=== PATIENT | male | born 1935 | race Caucasian/White ===

== ENCOUNTER 2022-06-27 15:53 | Inpatient (IN) | payer BC, MEDICARE ==
[2022-06-27] MEDS ORDERED: HYDROmorphone 1 MG/ML 1 ML SYRINGE IVP STA (16:19)
--- NOTE | 2022-06-27 16:21 | ED ---
Fall HPI - General Stated Complaint: Fall, hip pain Time Seen by Provider: 06/27/22 16:00 Source: patient, EMS, RN notes reviewed - History of Present Illness Initial Comments: 87-year-old male who states he slipped and fell when he was loading things into his car at a local supermarket. The pavement had been very wet after a brief range. He fell onto his right side he complains of pain and inability to bear weight on the area. He has no other complaints of any other pain or injury. Patient initially refused pain medication but he is requesting something this time. Complaint: fall - Related Data Allergies Allergy/AdvReac Type Severity Reaction Status Date / Time [id number] Reductase AdvReac Itching Verified 06/27/22 16:26 Inhibitor Review of Systems ROS Statement: Those systems with pertinent positive or pertinent negative responses have been documented in the HPI. ROS Other: All systems not noted in ROS Statement are negative. General Exam - General Exam Comments Initial Comments: This is a well-developed well-nourished awake alert oriented 3 male General appearance: alert, in no apparent distress Head exam: Present: atraumatic, normocephalic, normal inspection Eye exam: Present: normal appearance, PERRL, EOMI. Absent: scleral icterus, conjunctival injection, periorbital swelling ENT exam: Present: normal exam, mucous membranes moist Neck exam: Present: normal inspection, full ROM. Absent: tenderness, meningismus, lymphadenopathy Respiratory exam: Present: normal lung sounds bilaterally. Absent: respiratory distress, wheezes, rales, rhonchi, stridor Cardiovascular Exam: Present: regular rate, normal rhythm, normal heart sounds. Absent: systolic murmur, diastolic murmur, rubs, gallop, clicks GI/Abdominal exam: Present: soft, normal bowel sounds. Absent: distended, te nderness, guarding, rebound, rigid Extremities exam: Present: tenderness (Tennis palpation of the right hip noted definitive deformity there is slight lateral rotation.), normal capillary refill. Absent: full ROM, pedal edema, joint swelling, calf tenderness Back exam: Present: normal inspection, full ROM. Absent: tenderness Neurological exam: Present: alert, oriented X3, CN II-XII intact Psychiatric exam: Present: normal affect, normal mood Skin exam: Present: warm, dry, intact, normal color. Absent: rash Course Vital Signs 06/27/22 16:20 Temperature 98.7 F Pulse Rate 74 Respiratory 16 Rate Blood Pressure 157/78 O2 Sat by Pulse 95 Oximetry Medical Decision Making - Medical Decision Making I did discuss findings with patient family as well as with Dr. Grimes patient will be admitted with medical clearance for repair of the hip fracture. - Radiology Data Radiology results: image reviewed Interpreted by me: Imaging reviewed evidence of an intertrochanteric fracture of the right hip with a lesser trochanter avulsion. Patient complete report Disposition Clinical Impression: Fracture of hip, Fall Disposition: ADMITTED IP TO THIS [facility] Condition: Stable Referrals: Ricci Baxter DO [Primary Care Provider] - 1-2 days Decision Date: 06/27/22 Decision Time: 17:36
--- NOTE | 2022-06-27 17:15 | XR ---
EXAMINATION TYPE: XR Hip RT and AP Pelvis DATE OF EXAM: 06/27/2022 COMPARISON: NONE HISTORY: Fall. Hip pain TECHNIQUE: 3 views FINDINGS: The pelvic ring is intact. There is an acute comminuted intertrochanteric fracture right fe mur. No significant displacement. No dislocation. Sacroiliac joints are intact. IMPRESSION: Acute intertrochanteric fracture right femur.
[2022-06-27] MEDS ORDERED: NALOXONE 0.4 MG/ML 1 ML VIAL IV PRN (17:36)
[2022-06-27 17:43] LABS: Basophils % (A) 0 %; Eosinophils # (A) 0.1 k/uL (0-0.7); Eosinophils % (A) 1 %; HCT 44.2 % (39.0-53.0); HGB 14.7 gm/dL (13.0-17.5); Lymphocytes # (A) 0.8 k/uL (1.0-4.8); Lymphocytes % (A) 10 %; MCH 34.1 pg (25.0-35.0); MCHC 33.2 g/dL (31.0-37.0); MCV 102.8 fL (80.0-100.0); Macrocytosis Slight; Monocytes # (A) 0.4 k/uL (0-1.0); Monocytes % (A) 5 %; Neutrophils # (A) 6.7 k/uL (1.3-7.7); Neutrophils % (A) 83 %; Platelet Count 169 k/uL (150-450); RDW 13.7 % (11.5-15.5)
[2022-06-27 17:45] LABS: Appearance,Urine Clear (Clear); Bilirubin,Urine Negative (Negative); Blood,Urine Negative (Negative); Color,Urine Yellow; Glucose,Urine (UA) 4+ (Negative); Ketones,Urine Negative (Negative); Leukocyte Esterase,Urine Negative (Negative); Nitrite,Urine Negative (Negative); Protein,Urine Negative (Negative); Specific Gravity,Urine 1.033 (1.001-1.035); Urobilinogen,Urine <2.0 mg/dL (<2.0)
[2022-06-27 17:56] LABS: ALT 23 U/L (4-49); AST 27 U/L (17-59); African American GFR (CKD) >90 (>60 ml/min/1.73 sqM); Alkaline Phosphatase 79 U/L (38-126); Anion Gap 4 mmol/L; Blood Urea Nitrogen 15 mg/dL (9-20); Calcium 9.1 mg/dL (8.4-10.2); Carbon Dioxide 29 mmol/L (22-30); Chloride 103 mmol/L (98-107); Glucose 203 mg/dL (74-99); Magnesium 2.1 mg/dL (1.6-2.3); Non-African American GFR(CKD) 78 (>60 ml/min/1.73 sqM); Potassium 4.5 mmol/L (3.5-5.1); Sodium 136 mmol/L (137-145); Total Bilirubin 0.6 mg/dL (0.2-1.3); Total Protein 6.9 g/dL (6.3-8.2)
--- NOTE | 2022-06-27 18:18 | XR ---
EXAMINATION TYPE: XR chest 2V DATE OF EXAM: 06/27/2022 COMPARISON: NONE HISTORY: Pain. Trauma TECHNIQUE: 2 views FINDINGS: There is no heart failure nor confluent pneumonic infiltrate. Costophrenic angles are clear . There are sternal wires. No pneumothorax. There is some osteopenia. No significant thoracic laura destiny deformity. IMPRESSION: No active cardiopulmonary disease. No acute fracture seen.
--- NOTE | 2022-06-27 18:19 | XR ---
EXAMINATION TYPE: XR femur RT DATE OF EXAM: 06/27/2022 COMPARISON: NONE HISTORY: Pain TECHNIQUE: 4 views FINDINGS: There is acute comminuted intertrochanteric fracture right femur. No significant displaceme nt of the major fragments. The knee joint is anatomic. No dislocation at the hip joint. IMPRESSION: Intertrochanteric fracture right femur. Large lesser trochanteric displaced fracture frag ment.
[2022-06-27] MEDS: HYDROmorphone 1 MG/ML 1 ML SYRINGE IVP PRN (18:46)
[2022-06-27] MEDS: SODIUM CHLORIDE 0.9% 1,000 ML IV SCH (21:36)
[2022-06-28] MEDS: HYDROmorphone 1 MG/ML 1 ML SYRINGE IVP PRN ×3 (00:05→09:46)
[2022-06-28] MEDS: SODIUM CHLORIDE 0.9% 1,000 ML IV SCH ×2 (03:54→09:48)
[2022-06-28 07:44] LABS: Glucose,Whole Blood 164 mg/dL (70-110)
--- NOTE | 2022-06-28 10:17 | P.HPOR ---
History of Present Illness H&P Date: 06/28/22 This patient is an 87-year-old male with past medical history of diabetes that presented to [facility] emergency department yesterday via ambulance after a fall in a parking lot. The patient states it has just started raining and the pavement was slippery, and he lost his footing and fell to her directly onto the right hip. He was unable to get up or weight-bear following the injury. EMS was called and patient was transported to the emergency department. X-rays in the emergency department revealed a right intertrochanteric hip fracture. The patient was admitted under the care of Dr. Grimes with a consult placed to internal medicine for preoperative medical clearance. Patient examined bedside this morning. He is complaining of isolated right hip pain. He denies additional injuries or complaints. He states he did not hit his head. He states he does not take any blood thinners besides a baby aspirin daily. He denies chest pain, shortness breath, nausea, vomiting. Vital signs stable. Past Medical History Past Medical History: Diabetes Mellitus Additional Past Medical History / Comment(s): Spinal stenosis History of Any Multi-Drug Resistant Organisms: None Reported Past Surgical History: Coronary Bypass/CABG Additional Past Surgical History / Comment(s): TURP, Past Anesthesia/Blood Transfusion Reactions: No Reported Reaction Past Psychological History: No Psychological Hx Reported Smoking Status: Never smoker Past Alcohol Use History: None Reported Past Drug Use History: None Reported Medications and Allergies Home Medications Medication Instructions Recorded Confirmed Type Ascorbic Acid [Vitamin C] 1,000 mg PO DAILY 06/27/22 06/27/22 History Aspirin EC [Ecotrin Low Dose] 81 mg PO HS 06/27/22 06/27/22 History Cholecalciferol (Vitamin D3) 125 mcg PO DAILY 06/27/22 06/27/22 History [Vitamin D3 (125 MCG = 5,000 IU)] Cyanocobalamin (Vitamin B-12) 2,500 mcg PO DAILY 06/27/22 06/27/22 History [Vitamin B-12] Empagliflozin [Jardiance] 25 mg PO DAILY 06/27/22 06/27/22 History Exenatide Microspheres [Bydureon 2 mg SQ 06/27/22 06/28/22 History Bcise Auto-Injector] Insulin Glargine,Hum.rec.anlog 31 units SQ 06/27/22 06/28/22 History [Steven Bansal] [place]-3 Fatty Acids [[place]-3] 1,000 mg PO DAILY 06/27/22 06/27/22 History Ubidecarenone [Coenzyme Q10] 200 mg PO DAILY 06/27/22 06/27/22 History Vitamin B Complex 1 cap PO DAILY 06/27/22 06/27/22 History Zinc 25 mg PO DAILY 06/27/22 06/27/22 History ramipriL [Altace] 5 mg PO HS 06/27/22 06/28/22 History carvediloL [Coreg] 1.625 mg PO BID 06/28/22 06/28/22 History Allergies Allergy/AdvReac Type Severity Reaction Status Date / Time [id number] Reductase AdvReac Itching Verified 06/27/22 18:07 Inhibitor Physical Examination On examination, the patient is sitting up in bed in no apparent distress. He is alert and oriented 3. His head appears normocephalic and atraumatic. His breathing appears unlabored. on inspection of his bilateral upper extremities, there are no obvious deformities or signs of trauma. There is a very small abrasion at the posterior right elbow, no pain with passive range of motion or palpation of the elbow. On inspection of his left lower extremity, there are no obvious deformities or signs of trauma. On inspection of his right lower extremity, there are no open wounds or lacerations. There is diffuse pain to palpation of the right hip. There is severe pain of the knee with passive range of motion of the right hip. No pain with palpation of the right knee, lower leg, ankle, foot. Motor and sensory function is intact of the right lower extremity. The right dorsalis pedis pulses easily palpable, the right lower extremity with a is warm and well perfused. Calf is nontender. Results Right hip and pelvis x-ray 06/27/22: Right displaced intertrochanteric hip fracture - Labs Labs: Abnormal Lab Results - Last 24 Hours (Table) 06/27/22 06/27/22 06/27/22 Range/Units 17:23 17:23 17:23 MCV 102.8 H (80.0-100.0) fL Lymphocytes # 0.8 L (1.0-4.8) k/uL Sodium 136 L (137-145) mmol/L Glucose 203 H (74-99) mg/dL POC Glucose (mg/dL) (70-110) mg/dL Urine Glucose (UA) 4+ H (Negative) 06/28/22 Range/Units 07:43 MCV (80.0-100.0) fL Lymphocytes # (1.0-4.8) k/uL Sodium (137-145) mmol/L Glucose (74-99) mg/dL POC Glucose (mg/dL) 164 H (70-110) mg/dL Urine Glucose (UA) (Negative) H & H 06/27/22 Range/Units 17:23 Hgb 14.7 (13.0-17.5) gm/dL Hct 44.2 (39.0-53.0) % Result Diagrams: 06/27/22 17:23 06/27/22 17:23 Assessment and Plan Assessment: Displaced right intertrochanteric hip fracture Plan: - The clinical and imaging findings were discussed with the patient. The patient was discussed in detail with Dr. Grimes. Recommend closed reduction and insertion of right short gamma nail today, pending medical clearance and consent. The patient gave verbal consent to go forward with surgery at bedside this point. - Strict nonweightbearing right lower extremity. Bed rest. - Internal medicine consulted for pre-operative medical clearance. - NPO diet. Will plan for OR this afternoon.
[2022-06-28 11:54] LABS: Glucose,Whole Blood 105 mg/dL (70-110)
[2022-06-28] MEDS ORDERED: DEXTROSE 50% SYRINGE 50 ML IVP PRN ×2 (13:30)
--- NOTE | 2022-06-28 13:32 | P.CONS ---
History of Present Illness - Reason for Consult Consult date: 06/28/22 - History of Present Illness This is an 87-year-old male presents to the hospital after a fall while loading his car after shopping. States the [place] closing threw him off balance and he slipped, pavement was wet and patient reports slipping and landed on his right hip. Denies hitting his head. Right hip and pelvis x-ray shows acute intertrochanteric fracture right femur. Patient admitted to the hospital pending orthopedic evaluation. Medicine has been counseled to for surgical clearance. Chest x-ray on admission shows no active cardiopulmonary disease. No rib fractures evident. EKG reviewed shows sinus rhythm with first-degree AV block heart rate is 60, QTc interval 419. There are no ST or T-wave changes clint guo. He follows with Dr. Judy Baxter to the primary care setting, and also follows with a primary doctor in [place]. He lives in [place]. Patient's medical history significant for diabetes mellitus, hypertenion, hyperlipidemia, states his heart skips a beat, spinal stenosis, coronary artery bypass grafting x 5 about 15 to 20 years ago, kidney stones, enlarged prostate post TURP, also history of hernia repair. He also has obstructive sleep apnea, wears CPAP at night, which his family is brining. He is a never smoker. Drinks a beer every other day. On admission his blood count panel is essentially unremarkable he is macrocytic with an MCV of 102.8, sodium 136, glucose is 203 with repeat of 164. Troponin negative, liver enzymes are negative. Creatinine stable 0.89, urinalysis is showing glucose, negative for infection. He is afebrile, heart rate 76, blood pressure 150/75, 98% room air. Patient has been hydrated with 0.9 normal saline at 130 mL per hour which we will stop. REVIEW OF SYSTEMS: CONSTITUTIONAL: No fever, no malaise, no fatigue. HEENT: No recent visual problems or hearing problems. Denied any sore throat. CARDIOVASCULAR: No chest pain, orthopnea, PND, no palpitations, no syncope. PULMONARY: No shortness of breath, no cough, no hemoptysis. GASTROINTESTINAL: No diarrhea, no nausea, no vomiting, no abdominal pain. NEUROLOGICAL: No headaches, no weakness, no numbness. HEMATOLOGICAL: Denies any bleeding or petechiae. GENITOURINARY: Denies any burning micturition, frequency, or urgency. MUSCULOSKELETAL/RHEUMATOLOGICAL: Reports right hip pain, no parasthesias. ENDOCRINE: Denies any polyuria or polydipsia. The rest of the 14-point review of systems is negative. PHYSICAL EXAMINATION: GENERAL: The patient is alert and oriented x3, not in any acute distress. Well developed, well nourished. HEENT: Pupils are round and equally reacting to light. EOMI. No scleral icterus. No conjunctival pallor. Normocephalic, atraumatic. No pharyngeal erythema. No thyromegaly. CARDIOVASCULAR: S1 and S2 present. No murmurs, rubs, or gallops. PULMONARY: Chest is clear to auscultation, no wheezing or crackles. ABDOMEN: Soft, nontender, nondistended, normoactive bowel sounds. No palpable organomegaly. MUSCULOSKELETAL: No joint swelling or deformity. EXTREMITIES: No cyanosis, clubbing, or pedal edema. NEUROLOGICAL: Gross neurological examination did not reveal any focal deficits. SKIN: No rashes. Assessment and plan Assessment Acute right intertrochanteric fracture femur status post fall Hypertension resumed on home medications History of coronary artery disease test post CABG Diabetes mellitus with hyperglycemia Hyperlipidemia Obstructive sleep apnea wears CPAP History spinal stenosis History enlarged prostaete post TURP GI Prophylaxis DVT prophylaxis as per primary Full code Plan Resume appropriate home medications Cut dose of lisinopril in half to avoid postoperative hypotension Hold home baby aspirin EKG reviewed Labs reviewed Patient is cleared medically for surgery is considered a low operative risk Discontinue IV fluids Thank you for this consultation The impression and plan of care has been dictated by Onelia Miller Nurse Practitioner as directed. Dr. Mk MD I have performed a history and physical examination and medical decision making of this patient, discussed the same with the dictator, and agree with the dictators assessment and plan as written, documented as a scribe. Based on total visit time, I have performed more than 50% of this visit. Past Medical History Past Medical History: Diabetes Mellitus Additional Past Medical History / Comment(s): Spinal stenosis History of Any Multi-Drug Resistant Organisms: None Reported Past Surgical History: Coronary Bypass/CABG Additional Past Surgical History / Comment(s): TURP, Past Anesthesia/Blood Transfusion Reactions: No Reported Reaction Past Psychological History: No Psychological Hx Reported Smoking Status: Never smoker Past Alcohol Use History: None Reported Past Drug Use History: None Reported Medications and Allergies Home Medications Medication Instructions Recorded Confirmed Type Ascorbic Acid [Vitamin C] 1,000 mg PO DAILY 06/27/22 06/27/22 History Aspirin EC [Ecotrin Low Dose] 81 mg PO HS 06/27/22 06/27/22 History Cholecalciferol (Vitamin D3) 125 mcg PO DAILY 06/27/22 06/27/22 History [Vitamin D3 (125 MCG = 5,000 IU)] Cyanocobalamin (Vitamin B-12) 2,500 mcg PO DAILY 06/27/22 06/27/22 History [Vitamin B-12] Empagliflozin [Jardiance] 25 mg PO DAILY 06/27/22 06/27/22 History Exenatide Microspheres [Bydureon 2 mg SQ FR 06/27/22 06/28/22 History Bcise Auto-Injector] Insulin Glargine,Hum.rec.anlog 31 units SQ HS 06/27/22 06/28/22 History [Steven Bansal] [place]-3 Fatty Acids [[place]-3] 1,000 mg PO DAILY 06/27/22 06/27/22 History Ubidecarenone [Coenzyme Q10] 200 mg PO DAILY 06/27/22 06/27/22 History Vitamin B Complex 1 cap PO DAILY 06/27/22 06/27/22 History Zinc 25 mg PO DAILY 06/27/22 06/27/22 History ramipriL [Altace] 5 mg PO HS 06/27/22 06/28/22 History carvediloL [Coreg] 1.625 mg PO BID 06/28/22 06/28/22 History Allergies Allergy/AdvReac Type Severity Reaction Status Date / Time [id number] Reductase AdvReac Itching Verified 06/27/22 18:07 Inhibitor Physical Exam Vitals: Vital Signs Temp Pulse Pulse Resp BP BP Pulse Ox 06/28/22 04:53 97.9 F 76 16 158/75 99 06/27/22 22:00 16 06/27/22 21:17 98.1 F 76 16 163/70 97 06/27/22 20:45 80 16 139/74 95 06/27/22 16:20 98.7 F 74 16 157/78 95 Intake and Output 06/27/22 06/28/22 06/28/22 22:59 06:59 14:59 Intake Total 1400 Output Total 325 Balance 1075 Intake: Intake, IV Titration 1400 Amount Sodium Chloride 0.9% 1, 1400 000 ml @ 130 mls/hr IV . [id number] [facility] Rx#:[id number] Output: Urine 325 Other: Voiding Method Urinal Urinal # Voids 2 Weight 76.204 kg Results CBC & Chem 7: 06/27/22 17:23 06/27/22 17:23 Labs: Abnormal Lab Results - Last 24 Hours (Table) 06/27/22 06/27/22 06/27/22 Range/Units 17:23 17:23 17:23 MCV 102.8 H (80.0-100.0) fL Lymphocytes # 0.8 L (1.0-4.8) k/uL Sodium 136 L (137-145) mmol/L Glucose 203 H (74-99) mg/dL POC Glucose (mg/dL) (70-110) mg/dL Urine Glucose (UA) 4+ H (Negative) 06/28/22 Range/Units 07:43 MCV (80.0-100.0) fL Lymphocytes # (1.0-4.8) k/uL Sodium (137-145) mmol/L Glucose (74-99) mg/dL POC Glucose (mg/dL) 164 H (70-110) mg/dL Urine Glucose (UA) (Negative) Assessment and Plan Time with Patient: Less than 30
[2022-06-28] MEDS: carvediloL 3.125 MG TAB PO SCH ×2 (13:47→17:12)
[2022-06-28] MEDS ORDERED: TRANEXAMIC ACID 1,000 MG in SODIUM CHLORIDE 0.9% 100 ML IVPB ONE ×2 (15:02→15:03)
[2022-06-28 15:56] LABS: Glucose,Whole Blood 76 mg/dL (70-110)
[2022-06-28] MEDS ORDERED: DEXTROSE 50% SYRINGE 50 ML IVP ONE (16:00)
[2022-06-28] MEDS ORDERED: LACTATED RINGERS 1,000 ML IV ONE (16:03)
[2022-06-28] MEDS ORDERED: ONDANSETRON 4 MG/2 ML VIAL IVP ONE (16:03)
[2022-06-28 16:24] LABS: Glucose,Whole Blood 115 mg/dL (70-110)
[2022-06-28] MEDS ORDERED: LIDOCAINE 2% INJ 20 MG/ML (2 ML VIAL) ONE (16:40)
[2022-06-28] MEDS ORDERED: PROPOFOL 10 MG/ML 20 ML VIAL IV ONE (16:40)
[2022-06-28] MEDS ORDERED: PHENYLEPHRINE-0.9% NACL SYG 1,000 MCG/10 ML SYRINGE ONE (16:40)
[2022-06-28] MEDS ORDERED: fentaNYL (PF) 50 MCG/ML 2 ML AMP ONE (16:40)
[2022-06-28] MEDS ORDERED: MIDAZOLAM 2 MG/2 ML VIAL ONE (16:40)
[2022-06-28] MEDS ORDERED: TRANEXAMIC ACID IN NACL,ISO-OS 1,000 MG/100 ML BAG ONE (16:40)
[2022-06-28] MEDS ORDERED: ePHEDrine 50 MG/ML 1 ML VIAL ONE (16:40)
[2022-06-28] MEDS ORDERED: SUCCINYLCHOLINE CHLORIDE 200 MG/10 ML VIAL IV ONE (16:40)
[2022-06-28] MEDS ORDERED: carvediloL 3.125 MG TAB PO SCH (17:30)
[2022-06-28] MEDS: INSULIN ASPART (NovoLOG) 100 UNIT/ML VIAL SQ SCH ×2 (17:57→21:18)
[2022-06-28] MEDS ORDERED: hydrOXYzine pamoate 25 MG CAP PO PRN (18:36)
[2022-06-28] MEDS ORDERED: HYDROmorphone 0.5 MG/0.5 ML SYRINGE IVP PRN ×3 (18:36)
[2022-06-28] MEDS ORDERED: HYDROcodone/APAP 5-325MG 1 EACH TAB PO PRN (18:36)
[2022-06-28] MEDS ORDERED: ONDANSETRON 4 MG/2 ML VIAL IVP PRN (18:36)
--- NOTE | 2022-06-28 18:36 | P.OP ---
Date of Procedure: 06/28/22 Preoperative Diagnosis: 1. Right intertrochanteric hip fracture 2. Coronary artery disease status post open heart surgery 3. Type 2 diabetes Postoperative Diagnosis: Same Procedure(s) Performed: Operative fixation of right intertrochanteric hip fracture with short intramedullary hip screw Implants: Gamma nail 180 x 11 mm, 105 mm lag screw, 37.5 mm is to interlocking screw Anesthesia: DAI Surgeon: Stuart Grimes Nurse Sexual Assault #1: Alycia Mora Estimated Blood Loss (ml): 200 IV fluids (ml): 1,000 Pathology: none sent Condition: stable Disposition: PACU Indications for Procedure: I met with the patient and their family preoperatively to discuss their injury and treatment options. They have an extra-capsular, intertrochanteric hip fracture and my recommendation was to stabilize the fracture with an intramedullary hip screw to facilitate early mobilization. We discussed the potential risks and complications of this surgical procedure including but certainly not limited to risks from anesthesia, superficial infection, deep infection, fracture nonunion, fracture malunion, hardware failure including broken hardware, varus collapse with lag screw cut out of the femoral head, progression of hip arthritis, limb length discrepancy, symptomatic hardware, need for further surgery including hardware removal and conversion to arthroplasty, DVT, PE, acute coronary event, pressure ulcers, urinary tract infection, failure to thrive, an inability to regain preinjury level of function, and possibly . The patient and their family understand these potential complications and also awknowledge that other less common complications are possible. They provided both their verbal and written consent to go forward with operative fixation of their hip fracture with an intramedullary hip screw. Description of Procedure: The patient was identified in preoperative holding and the correct operative extremity was marked with my initials. I reviewed the consent form with the patient and their family and all of their questions were answered. The patient was then brought back to the operating room by anesthesia. Anesthesia, preoperative antibiotics, and tranexamic acid were given by the anesthesia team while on the [place]. Both ankles were padded with webril and boots for the [place] table were applied. The patient was then carefully transferred onto the [place] table. A perineal post was immediately placed. The contralateral arm was secured on a well-padded arm glez. The ipsilateral arm was draped across the chest and secured with a pillow, foam, and paper tape to allow access to the proximal femur. Nonsterile drapes were applied to the operative extremity. The height of the table was elevated and the contralateral extremity was dropped towards the floor to facilitate imaging. A timeout was performed identifying the correct patient, operative extremity, and procedure. Fluoroscopy was brought in to assess the fracture. A provisional reduction was performed using longitudinal traction, adduction, and internal rotation. An AP and lateral view were obtained to assess the reduction. The operative extremity was then prepped and draped in the standard sterile fashion. A straight incision was made at the tip of the greater trochanter and extended proximally for 3 cm. Skin and subcutaneous tissues were incised sharply. The underlying fascia was incised in line with the skin incision. An awl was placed just medial to the tip of the greater trochanter on the AP view and colinear with the canal on the lateral view. A 3.2 mm guide pin was then advanced into the proximal femur. The position of the guidepin was verified with fluoroscopy. An opening reamer and soft tissue cannula were placed over the guidepin and used to open the proximal femur to the level of the lesser trochanter. The 3.2 mm guide pin and opening reamer were removed. A short gamma nail was dispensed, hooked up to the targeting arm and I verified that the trochar through the targeting arm lined up with the slots on the nail. The nail was then impacted into the proximal femur until the appropriate depth had been reached. A small stab incision was made over the lateral aspect of the femur using the targeting arm as a reference for the lag screw. Incision was carried down to the skin and fascia down to the lateral cortex of the femur. The trocar was then placed up to the lateral cortex of the femur and a guidepin was placed in the low center position on the AP view and centered in the femoral head on the lateral view. Once the position of the guidewire was verified, we reamed to appropriate depth and placed a lag screw over the guidewire and into the femoral head. The position of the lag screw was assessed with fluoroscopy. The guidewi re was then removed from the femoral head. The set screw was placed proximally, brought fully down and then released a quarter turn to allow compression. A final stab incision was made over the lateral femur at the site of the distal interlocking screw, again using the targeting arm as a reference. The trocar and sleeve were placed to the lateral cortex of the femur. We then drilled and placed a distal interlocking screw. Final fluoroscopic images were taken showing excellent reduction of the fracture and appropriate position of the implants. All wounds were thoroughly irrigated and closed in layers. Sterile dressings were applied. The drapes were taken down, the patient was transferred off the [place] table, and was brought to recovery having tolerated the procedure well. Alycia Mora PA-C was required as a skilled assistant art director for patient positioning, retraction, placement of implants, closure of wounds, and application of dressings. PLAN: The patient can weight-bear as tolerated on their operative extremity. 2 doses of postoperative antibiotics. DVT prophylaxis with aspirin 81 mg twice a day starting the day of surgery. Dressing change on postoperative day #2. Appreciate Internal Medical assistance with perioperative medical management. Discharge planning in process.
[2022-06-28 18:43] LABS: Glucose,Whole Blood 114 mg/dL (70-110)
[2022-06-28] MEDS ORDERED: HYDROmorphone 0.5 MG/0.5 ML SYRINGE IVP ONE (18:46)
[2022-06-28] MEDS: ONDANSETRON 4 MG/2 ML VIAL IVP PRN (19:04)
[2022-06-28 20:17] LABS: Basophils % (A) 0 %; Eosinophils % (A) 0 %; HCT 35.4 % (39.0-53.0); HGB 11.9 gm/dL (13.0-17.5); Lymphocytes # (A) 0.9 k/uL (1.0-4.8); Lymphocytes % (A) 12 %; MCH 35.5 pg (25.0-35.0); MCHC 33.5 g/dL (31.0-37.0); MCV 105.9 fL (80.0-100.0); Macrocytosis Moderate; Mean Platelet Volume 8.3; Monocytes # (A) 0.4 k/uL (0-1.0); Monocytes % (A) 6 %; Neutrophils # (A) 6.1 k/uL (1.3-7.7); Neutrophils % (A) 81 %; Platelet Count 142 k/uL (150-450); RBC 3.35 m/uL (4.30-5.90); RDW 13.8 % (11.5-15.5); WBC 7.5 k/uL (3.8-10.6)
[2022-06-28] MEDS ORDERED: ASPIRIN 81 MG PO SCH (21:00)
[2022-06-28] MEDS ORDERED: lisinopriL 20 MG TAB PO SCH (21:00)
[2022-06-28] MEDS ORDERED: INSULIN DETEMIR (LEVEMIR) 100 UNIT/ML SYR SQ SCH (21:00)
[2022-06-28 21:04] LABS: Glucose,Whole Blood 92 mg/dL (70-110)
[2022-06-28] MEDS: SENNOSIDES-DOCUSATE SODIUM 1 EACH TAB PO SCH (21:18)
[2022-06-28] MEDS: INSULIN DETEMIR (LEVEMIR) 100 UNIT/ML SYR SQ SCH (21:18)
[2022-06-28] MEDS: lisinopriL 10 MG TAB PO SCH (21:18)
[2022-06-28] MEDS: HYDROcodone/APAP 5-325MG 1 EACH TAB PO PRN (23:43)
[2022-06-29] MEDS: ONDANSETRON 4 MG/2 ML VIAL IVP PRN (02:27)
[2022-06-29] MEDS: PANTOPRAZOLE 40 MG TABLET PO SCH (05:28)
[2022-06-29 07:35] LABS: Glucose,Whole Blood 161 mg/dL (70-110)
[2022-06-29] MEDS: Empagliflozin [Jardiance] PO SCH (08:15)
[2022-06-29] MEDS: INSULIN ASPART (NovoLOG) 100 UNIT/ML VIAL SQ SCH ×4 (08:40→21:29)
[2022-06-29] MEDS: carvediloL 3.125 MG TAB PO SCH ×2 (08:48→17:02)
[2022-06-29] MEDS: CYANOCOBALAMIN 500 MCG TAB PO SCH (08:49)
--- NOTE | 2022-06-29 08:54 | FL ---
EXAMINATION TYPE: FL guidance operating room DATE OF EXAM: 06/28/2022 FLUOROSCOPY Fluoroscopy time of 2 minutes 10 seconds was used during right hip nailing. 4 image/s document/s the procedure.
[2022-06-29] MEDS: HYDROcodone/APAP 5-325MG 1 EACH TAB PO PRN ×2 (08:56→17:03)
--- NOTE | 2022-06-29 10:34 | P.PN ---
Subjective Progress Note Date: 06/29/22 This patient is an 87- year old male who is status-post operative fixation of right intertrochanteric hip fracture with short intramedullary hip screw on 06/29/22. Today is post-operative day #1. Patient is examined bedside. He has not been up with physical therapy yet. He states the pain in his right hip is well- controlled. He notes mild nausea although is tolerating his diet ok. He is voiding freely. He denies chest pain, shortness of breath. Vital signs stable. Objective - Vital Signs Vital signs: Vital Signs Temp 98.0 F 06/29/22 05:00 Pulse 90 06/29/22 05:00 Resp 16 06/29/22 05:00 BP 107/51 06/29/22 05:00 Pulse Ox 92 L 06/29/22 05:00 FiO2 Intake & Output 06/28/22 06/29/22 06/29/22 18:59 06:59 18:59 Intake Total 950 590 Output Total 200 300 Balance 750 290 Intake: IV 950 Oral 590 Output: Urine 300 Estimated Blood Loss 200 Other: Voiding Method Urinal Urinal - Exam On examination, patient is sitting up in bed in no apparent distress. He is alert and oriented 3. On inspection of his right hip, there are 3 clean, dry, intact Opsite surgical dressings in place. No bleeding or drainage through the dressings. There is mild swelling of the thigh, the thigh is soft and compressible. Patient has good strength and [id number] of the right ankle and toes. Motor and sensory function is intact of the right lower extremity. Dorsalis pedis pulse is easily palpable, the right lower extremity is warm and well perfused. Calf is soft and nontender to palpation. - Labs CBC & Chem 7: 06/28/22 18:52 06/27/22 17:23 Labs: Abnormal Lab Results - Last 24 Hours (Table) 06/28/22 06/28/22 06/28/22 Range/Units 16:22 18:41 18:52 RBC 3.35 L (4.30-5.90) m/uL Hgb 11.9 L (13.0-17.5) gm/dL Hct 35.4 L (39.0-53.0) % MCV 105.9 H (80.0-100.0) fL MCH 35.5 H (25.0-35.0) pg Plt Count 142 L (150-450) k/uL Lymphocytes # 0.9 L (1.0-4.8) k/uL POC Glucose (mg/dL) 115 H 114 H (70-110) mg/dL Hemoglobin A1c (0.0-6.0) % 06/29/22 06/29/22 Range/Units 05:33 07:33 RBC (4.30-5.90) m/uL Hgb (13.0-17.5) gm/dL Hct (39.0-53.0) % MCV (80.0-100.0) fL MCH (25.0-35.0) pg Plt Count (150-450) k/uL Lymphocytes # (1.0-4.8) k/uL POC Glucose (mg/dL) 161 H (70-110) mg/dL Hemoglobin A1c 8.6 H (0.0-6.0) % Assessment and Plan Assessment: Status-post operative fixation of right intertrochanteric hip fracture with short intramedullary hip screw on 06/28/22. Post-operative day #1. Plan: - Weight bear to tolerance on operative extremity with a walker. - Physical therapy for gait and balance training. - Keep operative dressings intact. - Ice to right hip for swelling control. Pain management as needed. - Aspirin 81mg BID x 4 weeks for DVT prophylaxis. - Internal medicine for emani-operative medical clearance. - Case management consulted for discharge planning.
[2022-06-29 11:41] LABS: Glucose,Whole Blood 217 mg/dL (70-110)
--- NOTE | 2022-06-29 12:13 | P.PN ---
Subjective Progress Note Date: 06/29/22 This is an 87-year-old male presents to the hospital after a fall while loading his car after shopping. States the [place] closing threw him off balance and he slipped, pavement was wet and patient reports slipping and landed on his right hip. Denies hitting his head. Right hip and pelvis x-ray shows acute i ntertrochanteric fracture right femur. Patient admitted to the hospital pending orthopedic evaluation. Medicine has been counseled to for surgical clearance. Chest x-ray on admission shows no active cardiopulmonary disease. No rib fractures evident. EKG reviewed shows sinus rhythm with first-degree AV block heart rate is 60, QTc interval 419. There are no ST or T-wave changes evident. He follows with Dr. Judy Baxter to the primary care setting, and also follows with a primary doctor in [place]. He lives in [place]. Patient's medical history significant for diabetes mellitus, hypertenion, hyperlipidemia, states his heart skips a beat, spinal stenosis, coronary artery bypass grafting x 5 about 15 to 20 years ago, kidney stones, enlarged prostate post TURP, also history of hernia repair. He also has obstructive sleep apnea, wears CPAP at night, which his family is brining. He is a never smoker. Drinks a beer every other day. On admission his blood count panel is essentially unremarkable he is macrocytic with an MCV of 102.8, sodium 136, glucose is 203 with repeat of 164. Troponin negative, liver enzymes are negative. Creatinine stable 0.89, urinalysis is showing glucose, negative for infection. He is afebrile, heart rate 76, blood pressure 150/75, 98% room air. Patient has been hydrated with 0.9 normal saline at 130 mL per hour which we will stop. 06/29/2022 Patient is postoperative day #1 right hip repair. He reports no acute events overnight. Denies shortness of breath, no chest pain. States pain is controlled with oral pain medication. He reports trying to have BM, and is on senna HS. He is afebrile, heart rate 90, blood pressure 107/51, 92% on room air. Fluids KVO and will make order incentive spirometer, not one at bedside during rounds. Continue with betablocker and continue half dose of CATIA inhibitor. Medically he is stable. Review of Systems Constitutional: Denied any fatigue denied any fever. Cardio vascular: denied any chest pain, palpitations Gastrointestinal: denied any nausea, vomiting, diarrhea, passing gas, no BM Pulmonary: Denied any shortness of breath cough Neurologic denied any new focal deficits All inpatient medications were reviewed and appropriate changes in these medications as dictated in the interval history and assessment and plan. PHYSICAL EXAMINATION: GENERAL: The patient is alert and oriented x3, not in any acute distress. Well developed, well nourished. HEENT: Pupils are round and equally reacting to light. EOMI. No scleral icterus. No conjunctival pallor. Normocephalic, atraumatic. No pharyngeal erythema. No thyromegaly. CARDIOVASCULAR: S1 and S2 present. No murmurs, rubs, or gallops. PULMONARY: Chest is clear to auscultation, no wheezing or crackles. ABDOMEN: Soft, nontender, nondistended, normoactive bowel sounds. No palpable organomegaly. MUSCULOSKELETAL: No joint swelling or deformity. EXTREMITIES: No cyanosis, clubbing, or pedal edema. NEUROLOGICAL: Gross neurological examination did not reveal any focal deficits. SKIN: No rashes. Post surgical dressing intact Assessment and plan Assessment Acute right intertrochanteric fracture femur status post fall Postoperative day #1 right hip arthroplasty Hypertension History of coronary artery disease test post CABG Diabetes mellitus Hyperlipidemia Obstructive sleep apnea wears CPAP History spinal stenosis History enlarged prostaete post TURP GI Prophylaxis DVT prophylaxis as per primary Full code Plan Continue current mediations DVT prophylaxis, pain management per primary Encourage incentive spirometer Continue bowel regimen Pending PT evaluation Medically he is stable for discharge when cleared by orthopedics. The impression and plan of care has been dictated by Onelia Miller Nurse Practitioner as directed. Dr. Mk MD I have performed a history and physical examination and medical decision making of this patient, discussed the same with the dictator, and agree with the dictators assessment and plan as written, documented as a scribe. Based on total visit time, I have performed more than 50% of this visit. Objective - Vital Signs Vital signs: Vital Signs Temp 98.0 F 06/29/22 05:00 Pulse 90 06/29/22 05:00 Resp 16 06/29/22 05:00 BP 107/51 06/29/22 05:00 Pulse Ox 92 L 06/29/22 05:00 FiO2 Intake & Output 06/28/22 06/29/2206/29/22 18:59 06:59 18:59 Intake Total 950 590 Output Total 200 300 Balance 750 290 Intake: IV 950 Oral 590 Output: Urine 300 Estimated Blood Loss 200 Other: Voiding Method Urinal Urinal - Labs CBC & Chem 7: 06/28/22 18:52 06/27/22 17:23 Labs: Abnormal Lab Results - Last 24 Hours (Table) 06/28/22 06/28/22 06/28/22 Range/Units 16:22 18:41 18:52 RBC 3.35 L (4.30-5.90) m/uL Hgb 11.9 L (13.0-17.5) gm/dL Hct 35.4 L (39.0-53.0) % MCV 105.9 H (80.0-100.0) fL MCH 35.5 H (25.0-35.0) pg Plt Count 142 L (150-450) k/uL Lymphocytes # 0.9 L (1.0-4.8) k/uL POC Glucose (mg/dL) 115 H 114 H (70-110) mg/dL Hemoglobin A1c (0.0-6.0) % 06/29/22 06/29/22 Range/Units 05:33 07:33 RBC (4.30-5.90) m/uL Hgb (13.0-17.5) gm/dL Hct (39.0-53.0) % MCV (80.0-100.0) fL MCH (25.0-35.0) pg Plt Count (150-450) k/uL Lymphocytes # (1.0-4.8) k/uL POC Glucose (mg/dL) 161 H (70-110) mg/dL Hemoglobin A1c 8.6 H (0.0-6.0) % Assessment and Plan Time with Patient: Less than 30
--- NOTE | 2022-06-29 13:07 | XR ---
EXAMINATION TYPE: XR Hip Complete RT DATE OF EXAM: 06/28/2022 Comparison: 06/27/2022 Clinical History: 87-year-old male Rt Hip Gamma Nail Findings: Intraoperative fluoroscopic images show a antegrade intramedullary nail and screw fixation across the right proximal femur at the fracture. Fluoroscopy time 2 minutes 10 seconds. 3 images provided. Impression: Intraoperative fluoroscopy as above.
[2022-06-29 17:24] LABS: Glucose,Whole Blood 274 mg/dL (70-110)
[2022-06-29] MEDS: ASPIRIN 81 MG PO SCH (21:10)
[2022-06-29] MEDS: lisinopriL 10 MG TAB PO SCH ×2 (21:10→21:17)
[2022-06-29] MEDS: SENNOSIDES-DOCUSATE SODIUM 1 EACH TAB PO SCH (21:10)
[2022-06-29 21:20] LABS: Glucose,Whole Blood 391 mg/dL (70-110)
[2022-06-29] MEDS: INSULIN DETEMIR (LEVEMIR) 100 UNIT/ML SYR SQ SCH (21:30)
[2022-06-30 06:55] LABS: Glucose,Whole Blood 213 mg/dL (70-110)
[2022-06-30] MEDS: INSULIN ASPART (NovoLOG) 100 UNIT/ML VIAL SQ SCH ×2 (08:14→13:11)
[2022-06-30] MEDS: carvediloL 3.125 MG TAB PO SCH (08:17)
[2022-06-30] MEDS: ASPIRIN 81 MG PO SCH (08:17)
[2022-06-30] MEDS: PANTOPRAZOLE 40 MG TABLET PO SCH (08:19)
[2022-06-30 09:29] LABS: Basophils # (A) 0.01 X 10*3/uL (0.00-0.10); Basophils % (A) 0.1 %; Eosinophils # (A) 0.04 X 10*3/uL (0.04-0.35); Eosinophils % (A) 0.5 %; HCT 25.3 % (39.6-50.0); HGB 8.4 g/dL (13.0-17.0); Immature Grans, Automated 0.4 %; Lymphocytes # (A) 0.93 X 10*3/uL (0.90-5.00); Lymphocytes % (A) 12.6 %; MCH 34.4 pg (27.0-32.0); MCHC 33.2 g/dL (32.0-37.0); MCV 103.7 fL (80.0-97.0); Mean Platelet Volume 10.8 fL (9.5-12.2); Monocytes # (A) 0.84 X 10*3/uL (0.20-1.00); Monocytes % (A) 11.4 %; NRBC Per 100 WBC 0 /100 WBCS (0.0-0.0); Neutrophils # (A) 5.51 X 10*3/uL (1.80-7.70); Platelet Count 108 X 10*3/uL (140-440); RBC 2.44 X 10*6/uL (4.40-5.60); WBC 7.36 X 10*3/uL (4.50-10.00)
--- NOTE | 2022-06-30 09:42 | P.PN ---
Subjective Progress Note Date: 06/30/22 This is an 87-year-old male presents to the hospital after a fall while loading his car after shopping. States the [place] threw him off balance and he slipped, pavement was wet and patient reports slipping and landed on his right hip. Denies hitting his head. Right hip and pelvis x-ray shows acute i ntertrochanteric fracture right femur. Patient admitted to the hospital pending orthopedic evaluation. Medicine has been counseled to for surgical clearance. Chest x-ray on admission shows no active cardiopulmonary disease. No rib fractures evident. EKG reviewed shows sinus rhythm with first-degree AV block heart rate is 60, QTc interval 419. There are no ST or T-wave changes evident. He follows with Dr. Judy Baxter to the primary care setting, and also follows with a primary doctor in [place]. He lives in [place]. Patient's medical history significant for diabetes mellitus, hypertenion, hyperlipidemia, states his heart skips a beat, spinal stenosis, coronary artery bypass grafting x 5 about 15 to 20 years ago, kidney stones, enlarged prostate post TURP, also history of hernia repair. He also has obstructive sleep apnea, wears CPAP at night, which his family is brining. He is a never smoker. Drinks a beer every other day. On admission his blood count panel is essentially unremarkable he is macrocytic with an MCV of 102.8, sodium 136, glucose is 203 with repeat of 164. Troponin negative, liver enzymes are negative. Creatinine stable 0.89, urinalysis is showing glucose, negative for infection. He is afebrile, heart rate 76, blood pressure 150/75, 98% room air. Patient has been hydrated with 0.9 normal saline at 130 mL per hour which we will stop. 06/29/2022 Patient is postoperative day #1 right hip repair. He reports no acute events overnight. Denies shortness of breath, no chest pain. States pain is controlled with oral pain medication. He reports trying to have BM, and is on senna HS. He is afebrile, heart rate 90, blood pressure 107/51, 92% on room air. Fluids KVO and will make order incentive spirometer, not one at bedside during rounds. Continue with betablocker and continue half dose of CATIA inhibitor. Medically he is stable. 06/30/2022 Patient is postoperative day #2 he will be discharged today. Continue on bowel regimen while taking narcotics for pain control. We will give a dulcolax suppository today he is passing gas no BM. Continue all current home medications. Patient has been hyperglycemic which has not been on his jardiance or bydureon as they are not carried here. He will adjust diabetic medications as A1C was elevated. No acute events overnight. Hemodynamically stable, lungs are cleared. He is reaching over 2500 on his IS. Review of Systems Constitutional: Denied any fatigue denied any fever. Cardio vascular: denied any chest pain, palpitations Gastrointestinal: denied any nausea, vomiting, diarrhea, passing gas, no BM Pulmonary: Denied any shortness of breath cough Neurologic denied any new focal deficits All inpatient medications were reviewed and appropriate changes in these medications as dictated in the interval history and assessment and plan. PHYSICAL EXAMINATION: GENERAL: The patient is alert and oriented x3, not in any acute distress. Well developed, well nourished. HEENT: Pupils are round and equally reacting to light. EOMI. No scleral icterus. No conjunctival pallor. Normocephalic, atraumatic. No pharyngeal erythema. No thyromegaly. CARDIOVASCULAR: S1 and S2 present. No murmurs, rubs, or gallops. PULMONARY: Chest is clear to auscultation, no wheezing or crackles. ABDOMEN: Soft, nontender, nondistended, normoactive bowel sounds. No palpable organomegaly. MUSCULOSKELETAL: No joint swelling or deformity. EXTREMITIES: No cyanosis, clubbing, or pedal edema. NEUROLOGICAL: Gross neurological examination did not reveal any focal deficits. SKIN: No rashes. Post surgical dressing intact Assessment and plan Assessment Acute right intertrochanteric fracture femur status post fall Postoperative day #2 right hip arthroplasty Hypertension History of coronary artery disease test post CABG Diabetes mellitus with hyperglycemia Hyperlipidemia Obstructive sleep apnea wears CPAP History spinal stenosis History enlarged prostaete post TURP Peripheral neuropathy GI Prophylaxis DVT prophylaxis as per primary Full code Plan Continue current mediations DVT prophylaxis, pain management per primary Encourage incentive spirometer Continue bowel regimen Adjust diabetic medications Medically he is stable for discharge when cleared by orthopedics. The impression and plan of care has been dictated by Onelia Miller Nurse Practitioner as directed. Dr. Mk MD I have performed a history and physical examination and medical decision making of this patient, discussed the same with the dictator, and agree with the dictators assessment and plan as written, documented as a scribe. Based on total visit time, I have performed more than 50% of this visit. Objective - Vital Signs Vital signs: Vital Signs Temp 98.0 F 06/30/22 07:18 Pulse 76 06/30/22 07:18 Resp 18 06/30/22 07:18 BP 115/57 06/30/22 07:18 Pulse Ox 97 06/30/22 07:18 FiO2 Intake & Output 06/29/22 06/30/22 06/30/22 18:59 06:59 18:59 Intake Total 800 Output Total 450 Balance 800 -450 Intake: Oral 800 Output: Urine 450 Other: Voiding Method Urinal Urinal # Voids 2 2 - Labs CBC & Chem 7: 06/30/22 05:14 06/27/22 17:23 Labs: Abnormal Lab Results - Last 24 Hours (Table) 06/29/22 06/29/22 06/29/22 Range/Units 05:33 11:40 17:23 POC Glucose (mg/dL) 217 H 274 H (70-110) mg/dL Hemoglobin A1c 8.6 H (0.0-6.0) % 06/29/22 06/30/22 Range/Units 21:19 06:54 POC Glucose (mg/dL) 391 H 213 H (70-110) mg/dL Hemoglobin A1c (0.0-6.0) % Assessment and Plan Time with Patient: Less than 30
--- NOTE | 2022-06-30 10:07 | P.DS ---
Providers Date of admission: 06/27/22 17:36 Expected date of discharge: 06/30/22 Attending physician: Stuart Grimes Consults: 06/27/22 17:36 Consult Physician Routine Consulting Provider: Erica Pimentel Consult Reason/Comments: Medical clearance for surgery Do you want consulting provider notified?: Yes Primary care physician: [facility] Hospital Course: This is an 87-year-old male who is admitted to [facility] on 06/27/22 after a ground-level fall and sustaining injury to the right hip. X-rays in the emergency department revealed a right intertrochanteric hip fracture. He is admitted to our service for surgical intervention and care. Patient was taken to surgery for operative fixation of right intertrochanteric hip fracture with a short intramedullary hip screw on 06/28/22. The procedure was performed without complication or sequelae. The patient is doing fairly well postoperatively. Vital signs and labs are stable on postoperative day #2. Patient was examined bedside today. Patient states he is doing well and has no specific complaints. Patient states his pain is well-controlled. Patient is tolerating his diet well. He has worked with physical therapy. He denies chest pain, shortness of breath, nausea, vomiting, fevers, chills. No new complaints or concerns on the day of discharge. On examination, the patient is sitting up at the bedside. He is alert and oriented 3. On inspection of the right hip, there are three clean, dry, intact Opsite dressings intact. There is mild swelling of the thigh, thigh is soft and compressible. Patient has good strength and ROM of the right ankle and toes. Motor and sensory function is intact of the right lower extremity. Dorsalis pedis pulse +2, right lower extremity is warm and well perfused. Calf is soft and non-tender. Patient is discharged to rehab today in good condition, pending medical clearance. Patient will follow-up with Dr. Grimes in the office in two weeks with Dr. Grimes. Please see med rec for accurate list of discharge medication. Patient Condition at Discharge: Stable Plan - Discharge Summary Discharge Rx Participant: No New Discharge Prescriptions: New INSULIN ASPART (NovoLOG) [NovoLOG (formulary)] 0 unit SQ ACHS each Docusate [Colace] 100 mg PO BID #60 capsule HYDROcodone/APAP 5-325MG [Hudson 5-325] 1 tab PO Q6HR PRN 30 Days #7 tab PRN Reason: Pain Famotidine [Pepcid] 20 mg PO DAILY #30 tablet Sennosides-Docusate Sodium [Senokot-S] 2 each PO HS tab INSULIN LISPRO (HumaLOG) [humaLOG] 4 units SQ ACHS #10 ml metFORMIN HCL [metFORMIN HCL ER Osmotic] 500 mg PO DAILY #30 tab Continue Ubidecarenone [Coenzyme Q10] 200 mg PO DAILY Ascorbic Acid [Vitamin C] 1,000 mg PO DAILY Vitamin B Complex 1 cap PO DAILY Cyanocobalamin (Vitamin B-12) [Vitamin B-12] 2,500 mcg PO DAILY Aspirin EC [Ecotrin Low Dose] 81 mg PO HS Insulin Glargine,Hum.rec.anlog [Steven Bansal] 31 units SQ HS Exenatide Microspheres [Bydureon Bcise Auto-Injector] 2 mg SQ FR Zinc 25 mg PO DAILY carvediloL [Coreg] 1.625 mg PO BID ramipriL [Altace] 5 mg PO HS Metamora-3 Fatty Acids [Metamora-3] 1,000 mg PO DAILY Cholecalciferol (Vitamin D3) [Vitamin D3 (125 MCG = 5,000 IU)] 125 mcg PO DAILY Empagliflozin [Jardiance] 25 mg PO DAILY Discharge Medication List Ascorbic Acid [Vitamin C] 1,000 mg PO DAILY 06/27/22 [History] Aspirin EC [Ecotrin Low Dose] 81 mg PO HS 06/27/22 [History] Cholecalciferol (Vitamin D3) [Vitamin D3 (125 MCG = 5,000 IU)] 125 mcg PO DAILY 06/27/22 [History] Cyanocobalamin (Vitamin B-12) [Vitamin B-12] 2,500 mcg PO DAILY 06/27/22 [History] Empagliflozin [Jardiance] 25 mg PO DAILY 06/27/22 [History] Exenatide Microspheres [Bydureon Bcise Auto-Injector] 2 mg SQ FR 06/27/22 [History] Insulin Glargine,Hum.rec.anlog [Toujudyo Solostar] 31 units SQ HS 06/27/22 [History] Metamora-3 Fatty Acids [Metamora-3] 1,000 mg PO DAILY 06/27/22 [History] Ubidecarenone [Coenzyme Q10] 200 mg PO DAILY 06/27/22 [History] Vitamin B Complex 1 cap PO DAILY 06/27/22 [History] Zinc 25 mg PO DAILY 06/27/22 [History] ramipriL [Altace] 5 mg PO HS 06/27/22 [History] carvediloL [Coreg] 1.625 mg PO BID 06/28/22 [History] Docusate [Colace] 100 mg PO BID #60 capsule 06/30/22 [Rx] Famotidine [Pepcid] 20 mg PO DAILY #30 tablet 06/30/22 [Rx] HYDROcodone/APAP 5-325MG [Hudson 5-325] 1 tab PO Q6HR PRN 30 Days #7 tab 06/30/22 [Rx] INSULIN ASPART (NovoLOG) [NovoLOG (formulary)] 0 unit SQ ACHS each 06/30/22 [Rx] INSULIN LISPRO (HumaLOG) [humaLOG] 4 units SQ ACHS #10 ml 06/30/22 [Rx] Sennosides-Docusate Sodium [Senokot-S] 2 each PO HS tab 06/30/22 [Rx] metFORMIN HCL [metFORMIN HCL ER Osmotic] 500 mg PO DAILY #30 tab 06/30/22 [Rx] Follow up Appointment(s)/Referral(s): Ricci Baxter DO [Primary Care Provider] - 1-2 days Stuart Grimes MD [Medical Doctor] - 2 Weeks Activity/Diet/Wound Care/Special Instructions: Weight-bear to tolerance on right lower extremity with a walker. Up with assistance, fall precautions. Keep operative dressings intact for 7-10 days. May shower over dressings. Take pain medications as needed. Take aspirin 81mg BID x 4 weeks for blood clot prevention. Follow-up in the office in two weeks with Dr. Grimes. Call the office with any questions or concerns, Discharge Disposition: TRANSFER TO SNF/ECF
[2022-06-30] MEDS: bisacodyL 10 MG SUPP RECTAL STA ×2 (10:29→11:05)
[2022-06-30 11:20] LABS: Glucose,Whole Blood 155 mg/dL (70-110)
[2022-06-30] MEDS: HYDROcodone/APAP 5-325MG 1 EACH TAB PO PRN ×2 (11:32)
[2022-06-30] MEDS: Empagliflozin [Jardiance] PO SCH (11:40)
[2022-06-30] MEDS: CYANOCOBALAMIN 500 MCG TAB PO SCH (13:07)
[2022-06-30 13:15] VITALS: BP 100/53; PULSE 72; RESP 16; TEMP 99
== END 2022-06-30 15:00 | DRG 482 ==
LOC: EC 15:53 → 4SSUR 17:36 → 5NMEDONC 20:16
PROVIDERS: ADMIT Orthopaedic Surgery; ATTEND Orthopaedic Surgery
PROC: 8E0YXBF Computer Assisted Procedure of Lower Extremity, With Fluoroscopy (ICD-10-PCS; 2022-06-28)
PROC: 0QS636Z Reposition Right Upper Femur with Intramedullary Internal Fixation Device, Percutaneous Approach (ICD-10-PCS; principal; 2022-06-28 09:00)
DX: S72.141A Displaced intertrochanteric fracture of right femur, initial encounter for closed fracture (principal); I25.10 Atherosclerotic heart disease of native coronary artery without angina pectoris; I10 Essential (primary) hypertension; E11.65 Type 2 diabetes mellitus with hyperglycemia; E78.5 Hyperlipidemia, unspecified; G47.33 Obstructive sleep apnea (adult) (pediatric); M48.00 Spinal stenosis, site unspecified; Z95.1 Presence of aortocoronary bypass graft; E11.42 Type 2 diabetes mellitus with diabetic polyneuropathy; I44.0 Atrioventricular block, first degree; N40.0 Benign prostatic hyperplasia without lower urinary tract symptoms; Z87.442 Personal history of urinary calculi; W01.0XXA Fall on same level from slipping, tripping and stumbling without subsequent striking against object, initial encounter; Y92.481 Parking lot as the place of occurrence of the external cause; Z79.84 Long term (current) use of oral hypoglycemic drugs; Z79.899 Other long term (current) drug therapy; Z96.641 Presence of right artificial hip joint; Z88.8 Allergy status to other drugs, medicaments and biological substances; Z79.4 Long term (current) use of insulin
CPT/HCPCS: 36415; 71046; 73502; 80053; 81003; 83036; 83735; 84484; 85025; 86850; 86900; 86901; 93005; 96374; 96375; 99285

== ENCOUNTER → 2022-07-21 | Outpatient (CLI) | payer MEDICARE, BC ==
--- NOTE | 2022-07-22 07:26 | US ---
EXAMINATION TYPE: US venous doppler duplex LE RT DATE OF EXAM: 07/21/2022 4:38 PM COMPARISON: NONE CLINICAL HISTORY: I80.9 Phlebitis and thrombophlebitis of unspecified. Right leg pain and redness SIDE PERFORMED: Right TECHNIQUE: The lower extremity deep venous system is examined utilizing real time linear array sonog ángel with graded compression, doppler sonography and color-flow sonography. VESSELS IMAGED: Common Femoral Vein Deep Femoral Vein Greater Saphenous Vein * Femoral Vein Popliteal Vein Small Saphenous Vein * Proximal Calf Veins (* superficial vessels) Right Leg: Negative for DVT Results called to Tamera at Dr's office at time of exam IMPRESSION: 1. Right lower extremity ultrasound negative for deep venous thrombosis
== END | disposition home or self-care (01) ==
LOC: RADUSWWP 16:19
PROVIDERS: ATTEND Orthopaedic Surgery
DX: I80.9 Phlebitis and thrombophlebitis of unspecified site (principal)